=== PATIENT | female | born 1960 | race Caucasian/White ===

== ENCOUNTER 2017-02-09 08:30 | Inpatient (IN) | payer OTHER ==
[2017-02-10 05:11] LABS: HCT 35.2 % (37.0-47.0); HGB 11.1 g/dl (12.5-16.0); MCH 32.4 pg (25.0-31.0); MCHC 31.5 g/dL (32.0-36.0); MCV 102.6 fL (78.0-100.0); MPV 9.6 fL (6.0-9.5); RBC 3.43 M/uL (4.20-5.40)
[2017-02-10 05:31] LABS: CREATININE 1.2 mg/dL (0.5-1.0); POTASSIUM 4.1 mmol/L (3.5-5.1)
[2017-02-11 05:56] LABS: HCT 31.4 % (37.0-47.0); MCH 32.2 pg (25.0-31.0); MCHC 31.8 g/dL (32.0-36.0); MPV 9.7 fL (6.0-9.5); RBC 3.11 M/uL (4.20-5.40); RDW 15.7 % (11.5-14.0); WBC 7.6 K/uL (4.0-10.5)
[2017-02-11 06:11] LABS: CREATININE 0.8 mg/dL (0.5-1.0); POTASSIUM 3.4 mmol/L (3.5-5.1)
[2017-02-12 04:41] LABS: HCT 30.9 % (37.0-47.0); HGB 9.8 g/dl (12.5-16.0); MCH 32.6 pg (25.0-31.0); MCHC 31.7 g/dL (32.0-36.0); MCV 102.7 fL (78.0-100.0); MPV 10.1 fL (6.0-9.5); RBC 3.01 M/uL (4.20-5.40); WBC 8.5 K/uL (4.0-10.5)
[2017-02-12 05:03] LABS: CREATININE 0.8 mg/dL (0.5-1.0); POTASSIUM 4.2 mmol/L (3.5-5.1)
== END 2017-02-12 14:20 | DRG 470 ==
LOC: FMS 08:30
PROVIDERS: Internal Medicine Cardiovascular Disease; ADMIT Orthopaedic Surgery
PROC: 8E0YXBZ Computer Assisted Procedure of Lower Extremity (ICD-10-PCS; 2017-02-09)
PROC: 0SRC0J9 Replacement of Right Knee Joint with Synthetic Substitute, Cemented, Open Approach (ICD-10-PCS; principal; 2017-02-09 08:30)
DX: M17.11 Unilateral primary osteoarthritis, right knee (principal); F32.9 Major depressive disorder, single episode, unspecified; M21.061 Valgus deformity, not elsewhere classified, right knee; K21.9 Gastro-esophageal reflux disease without esophagitis; R41.9 Unspecified symptoms and signs involving cognitive functions and awareness; M19.90 Unspecified osteoarthritis, unspecified site; G89.4 Chronic pain syndrome; M54.9 Dorsalgia, unspecified; Z90.710 Acquired absence of both cervix and uterus
CPT/HCPCS: 36415; 73560; 80048; 86850; 86900; 86901; 88305; 88311; 94010; 94760; 94762; 97110; 97116; 97162; 97166; 97530-GP; 97535; C1713; C1776; J0131; J0697; J1170; J1885; J2270; J2405; J2704; J2795; J3010

== ENCOUNTER 2017-02-12 14:20 | Inpatient (IN) | payer OTHER ==
--- NOTE | 2017-02-19 10:57 | NUR ---
REVIEWED DISCHARGE INSTRUCTIONS, MEDICATIONS, PRECAUTIONS AND APPT INFORMATION WITH PT - PT VERBALIZED UNDERSTANDING ENCOURAGED HER TO APPLY HER [employer] WRAPS - EDUCATED HER ON RISKS AND BENEFITS OF NONCOMPLIANCE - PT STATES SHE WILL NOT BE WEARING THEM RIGHT NOW AND WILL APPLY THEM WHEN SHE GETS HOME - REITERATED THE IMPORTANCE OF ABEL WRAPS AND ANKLE PUMPS - PT VERBALIZED UNDERSTANDING
--- NOTE | 2017-02-19 12:31 | NUR ---
PT. D/C HOME THIS DATE. PT. REQUESTED [facility] FOR PT/OT AND NURSING ASSESSMENT. [facility] TO DELIVER A ROLLING WALKER AND 11/25 UPON DISCHARGE. D/C NOTICE AND QUESTIONNAIRE GIVEN.
== END 2017-02-19 12:10 | disposition home health service (06) | DRG 561 ==
LOC: FSNU 14:20
PROVIDERS: ADMIT Orthopaedic Surgery
DX: Z47.1 Aftercare following joint replacement surgery (principal); F32.9 Major depressive disorder, single episode, unspecified; Z96.651 Presence of right artificial knee joint; K21.9 Gastro-esophageal reflux disease without esophagitis; M54.9 Dorsalgia, unspecified; G89.29 Other chronic pain; F41.9 Anxiety disorder, unspecified
CPT/HCPCS: 82962; 92523; 97110; 97116; 97162; 97166; 97530-GP; 97535

== ENCOUNTER 2017-03-20 03:50 | Emergency (ER) | payer OTHER ==
[2017-03-20 04:35] LABS: BILIRUBIN NEGATIVE (NEGATIVE); BLOOD TRACE-INTACT Ery/uL (NEGATIVE); CLARITY CLEAR (CLEAR); COLOR YELLOW (YELLOW); GLUCOSE (U) NORMAL (NORMAL); KETONE (U) NEGATIVE (NEGATIVE); LEUKOCYTES NEGATIVE Leu/uL (NEGATIVE); NITRITE NEGATIVE (NEGATIVE); PROTEIN NEGATIVE (NEGATIVE); UROBILINOGEN 0.2 mg/dL (0.2-1.0); pH 5.5 (5.0-9.0)
[2017-03-20 04:41] LABS: BACTERIA TRACE; SQUAMOUS EPITHELIAL CELLS RARE; URINARY RBC RARE; URINARY WBC RARE
[2017-03-20 04:44] LABS: HCT 35.4 % (37.0-47.0); HGB 11.4 g/dl (12.5-16.0); MCV 98.6 fL (78.0-100.0); RBC 3.59 M/uL (4.20-5.40); WBC 11.3 K/uL (4.0-10.5)
[2017-03-20 04:45] LABS: ANISOCYTOSIS SLIGHT; EOSINOPHIL(M) 1 % (0-5); LYMPHOCYTE(M) 9 % (15-48); MCH 31.8 pg (25.0-31.0); MCHC 32.2 g/dL (32.0-36.0); MONOCYTE(M) 7 % (0-12); NEUTROPHILS(M) 83 % (41-80); PLATELET ESTIMATE NORMAL; PLATELET MORPHOLOGY NORMAL; PLT 463 K/uL (150-400); TOTAL CELL COUNT 100
[2017-03-20 04:47] LABS: LACTIC ACID 1.2 mmol/L (0.5-2.2)
[2017-03-20 04:48] LABS: CREATININE 0.9 mg/dL (0.5-1.0)
== END 2017-03-20 06:04 | disposition home or self-care (01) ==
LOC: FER 03:50
PROVIDERS: Emergency Medicine
DX: M25.561 Pain in right knee (principal); X58.XXXA Exposure to other specified factors, initial encounter; Y92.009 Unspecified place in unspecified non-institutional (private) residence as the place of occurrence of the external cause; Z79.899 Other long term (current) drug therapy
CPT/HCPCS: 36415; 73564; 80048; 81001; 83605; 87088; J1170; J1885; J2270; J2405

== ENCOUNTER 2020-12-06 12:04 | Emergency (ER) | payer OTHER ==
[~2020-12-06 12:04] MED LIST: ARTIFICIAL TEA1 EACH OU; BENZTROPINE MESY1 MG PO; BUSPIRONE HCL15 MG PO; BUSPIRONE HCL30 MG PO; CARAFATE1 GM PO; CARBIDOPA-LEVO1 EAC2 PO; CATAPRES 0.2MG0.2 MG TOP; CEFDINIR300 MG PO; CELEXA20 MG PO; CIPRO500 MG PO; CITALOPRAM 40MG40 MG PO; INDERAL 40MG TA40 MG PO; INDERAL20 MG PO; LAMICTAL150 MG PO; LAXATIVE OF CHOICE; MICON-GUARD 2%85 GM TOP; NEURONTIN300 MG PO; PHENERGAN25 M1 PO; PROTONIX 40MG T40 MG PO; REQUIP0.25 MG PO; WELLBUTRIN XL150 MG PO; ZANAFLEX4 M1 PO
[2020-12-06] MEDS ORDERED: NORCO 5-325 TA1 EACH PO (12:53)
== END 2020-12-06 13:45 | disposition home or self-care (01) ==
LOC: FER 12:04
DX: S42.215A Unspecified nondisplaced fracture of surgical neck of left humerus, initial encounter for closed fracture (principal); G20 Parkinson's disease; W18.09XA Striking against other object with subsequent fall, initial encounter; Y92.009 Unspecified place in unspecified non-institutional (private) residence as the place of occurrence of the external cause
CPT/HCPCS: 73030; 73060